=== PATIENT | female | born 1980 | race American Indian/Alaskan Native ===

== ENCOUNTER 2017-06-27 05:59 | Day surgery (SDC) | payer MEDICAID ==
[~2017-06-27 05:59] MED LIST: ANCEF/STERILE WATER 2 GM/20 ML IV NR
--- NOTE | 2017-06-27 07:11 | Anesthesia Day of Surgery ---
Anesthesia Day of Surgery - Day of Surgery Patient Examined: Yes Patient H&P Reviewed: Yes Patient is NPO: Yes
--- NOTE | 2017-06-27 07:11 | Anesthesia Consultation ---
Anesthesia Consult and Med Hx Date of service: 06/27/17 - Airway Anesthetic Teeth Evaluation: Good, Caps ROM Head & Neck: Adequate Mental/Hyoid Distance: Adequate Mallampati Class: Class II Intubation Access Assessment: Probably Good - Pulmonary Exam CTA: Yes - Cardiac Exam Cardiac Exam: RRR - Pre-Operative Health Status ASA Pre-Surgery Classification: ASA2 Proposed Anesthetic Plan: General - Pulmonary Hx Smoking: Yes (PAST SMOKER) Hx Sleep Apnea: No (CAMERON PRE SCREEN NEGATIVE) - Central Nervous System Hx Psychiatric Problems: No - Other Systems Hx Alcohol Use: Yes (OCCASIONAL SOCIALLY) Hx Substance Use: Yes (MARIJUANA EVERY 1-2 WEEKS, SOCIALLY) Hx Cancer: No
[2017-06-27] MEDS ORDERED: PERCOCET 5/325 PO PRN (07:12)
[2017-06-27] MEDS ORDERED: DILAUDID IV PRN (07:12)
[2017-06-27] MEDS ORDERED: ZOFRAN IV PRN (07:12)
[2017-06-27] MEDS ORDERED: XYLOCAINE MPF 2% ONE (07:29)
[2017-06-27] MEDS ORDERED: SUBLIMAZE ONE (07:37)
[2017-06-27] MEDS ORDERED: DIPRIVAN 10 MG/ML IV ONE ×2 (07:38→08:35)
[2017-06-27] MEDS ORDERED: LACTATED RINGERS 1,000 ML IV SCH (08:00)
[2017-06-27] MEDS ORDERED: PEPCID PO NR (08:00)
[2017-06-27] MEDS ORDERED: VERSED IV NR (08:00)
[2017-06-27] MEDS ORDERED: XYLOCAINE 1% 20 mL INFILTRATI ONE (08:05)
[2017-06-27] MEDS ORDERED: MARCAINE 0.5% INFILTRATI ONE (08:05)
[2017-06-27] MEDS ORDERED: NACL 0.9% IR ONE (08:05)
[2017-06-27] MEDS ORDERED: MARCAINE 0.5% 30 ML INFILTRATI ONE (08:30)
[2017-06-27] MEDS ORDERED: XYLOCAINE 1% 20 mL ONE (08:30)
[2017-06-27 09:36] VITALS: BP 119/79
--- NOTE | 2017-06-27 10:12 | Operative Report ---
PREOPERATIVE DIAGNOSIS: Keloid of right ear. POSTOPERATIVE DIAGNOSIS: Keloid of right ear. PROCEDURE: 1. Excision, benign neoplasm of right ear, 2.5 cm. 2. Adjacent tissue transfer closure of right ear less than 10 square cm. SURGEON: Jorge Coates MD DESCRIPTION OF PROCEDURE: The patient was brought in the operating room, placed on the table in supine position. Following administration of IV sedation and local anesthesia, the right ear was prepped with Betadine solution and draped in the usual sterile manner. A #15 blade scalpel was used to circumferentially excise the lesion followed by extensive undermining and advancement rotation of skin ____ helix with closure without undue tension using interrupted and running subcuticular 4-0 Monocryl sutures. Mastisol, Steri-Strips, and sterile dressings applied. The patient tolerated the procedure well and returned to recovery room in stable condition. JOB# [id number] FTW/NTS
--- NOTE | 2017-06-27 10:23 | Post Anesthesia Evaluation ---
- Post Anesthesia Evaluation Patient Participated: Yes Airway Patent: Yes Stable Respiratory Function: Yes Nausea/Vomiting: No Temp > 96.8F: Yes Pain Manageable: Yes Adequeate Hydration: Yes Anesthesia Complications: No Block Receding Appropriately: Not Applicable Patient on Ventilator: No
== END 2017-06-27 09:52 | disposition designated cancer center or children's hospital (05) ==
LOC: OR 05:59
PROVIDERS: ATTEND Plastic Surgery
DX: D36.11 Benign neoplasm of peripheral nerves and autonomic nervous system of face, head, and neck (principal); K21.9 Gastro-esophageal reflux disease without esophagitis; F12.90 Cannabis use, unspecified, uncomplicated; Z87.891 Personal history of nicotine dependence; Z72.89 Other problems related to lifestyle; Z98.890 Other specified postprocedural states
CPT/HCPCS: 14060; 81025; 88305; 88341; 88342; J0690; J2250; J2704; J3010; J7120